=== PATIENT | male | born 1990 | race Caucasian/White ===

== ENCOUNTER 2017-03-31 12:55 | Emergency (ER) | payer OTHER ==
[~2017-03-31] VITALS: Ht 180.3 cm; Wt 73.0 kg
[2017-03-31 12:58] VITALS: TEMP 37.3; Ht 180.3 cm; Wt 73.0 kg
[2017-03-31] MEDS ORDERED: SODIUM CHLORIDE 0.9% 1000ML 1,000 ML IV STA ×2 (13:16→14:19)
[2017-03-31] MEDS ORDERED: KETOROLAC TROMETHAMINE 30 MG/ML VIAL IV STA (13:16)
--- NOTE | 2017-03-31 13:26 | EMERGENCY ROOM VISIT NOTE ---
History Report prepared by Zeinab: Panfilo Arthur Under the Supervision of: Dr. Semaj Jackson D.O. First contact with patient: 13:04 Chief Complaint: NEURO SYMPTOMS Stated Complaint: NUMB FACE/HANDS, HARD TO BREATHE, SORETHROAT, FATI History of Present Illness The patient is a 26 year old male who presents to the Emergency Room with complaints of constant flu like symptoms starting this morning. The patient is complaining of a sore throat, fever, chills, headache, stiff neck, body aches, shortness of breath, chronic rhinorrhea, and a cough. The patient is denying any nausea, vomiting, and abdominal pain. The patient states that he gets strep very often. The patient states that he drank one beer yesterday. He notes that his roommate had a sorethroat last week but it was strep negative. He states that he does not take any medications, and he has not had any surgeries. Source of History: patient Onset: this morning Position: other (global) Quality: other (flu like symptoms) Timing: constant Associated Symptoms: + fevers, + chills, + headache, + sorethroat, + cough, + SOB Review of Systems See HPI for pertinent positives & negatives. A total of 10 systems reviewed and were otherwise negative. Past Medical & Surgical Medical Problems: (1) Sinusitis (2) Sinusitis (3) Strep throat (4) Strep throat Social History Smoking Status: Never Smoker Marital Status: single Housing Status: lives with roommate Occupation Status: employed Current/Historical Medications No Active Prescriptions or Reported Meds Allergies Coded Allergies: No Known Allergies (Unverified , 03/31/17) Physical Exam Vital Signs Date Time Temp Pulse Resp B/P (MAP) Pulse Ox O2 Delivery O2 Flow Rate FiO2 03/31/17 16:01 84 16 129/72 96 03/31/17 15:10 99 03/31/17 15:09 92 20 145/80 100 Room Air 03/31/17 13:36 Room Air 03/31/17 12:58 37.3 128 20 154/85 100 Room Air Physical Exam GENERAL: Patient is awake, alert, anxious appearing, and hyperventilating. EYES: The conjunctivae are clear. The pupils are round and reactive. EARS, NOSE, MOUTH AND THROAT: TMs are clear bilaterally. There is erythema in the posterior oropharynx . No exudate or significant swelling appreciated. The nose is without any evidence of any deformity. Mucous membranes are moist tongue is midline NECK: The neck is nontender and supple. RESPIRATORY: Normal respiratory effort is noted there is no evidence of wheezing rhonchi or rales CARDIOVASCULAR: Tachycardic rate and regular rhythm noted there no murmurs rubs or gallops normal S1 normal S2 GASTROINTESTINAL: The abdomen is soft. Bowel sounds are present in all quadrants. Abdomen is nontender MUSCULOSKELETAL/EXTREMITIES: There is no evidence of gross deformity full range of motion is noted in the hips and shoulders SKIN: There is no obvious evidence of any rash. There are no petechiae, pallor or cyanosis noted. NEUROLOGIC: Patient is awake alert and oriented x3 strength is symmetric patellar reflexes are 2+ bilaterally. Significant bilateral carpopedal spasm noted Medical Decision & Procedures ER Provider Diagnostic Interpretation: Radiology results as stated below per my review and radiologist interpretation: SOFT TISSUE NECK CLINICAL HISTORY: 26 years-old Male presenting with sore throat, fever. TECHNIQUE: Frontal and lateral views of the neck were obtained. COMPARISON: None. FINDINGS: Cervical spine is normal in appearance. No prevertebral soft tissue swelling. No effacement of the valleculae. No swelling of the epiglottis. No apparent thickening of the aryepiglottic folds. Hypopharynx and airway patent. Lung apices clear. IMPRESSION: Normal radiographs of the neck. Electronically signed by: Lencho Natarajan M.D. 03/31/2017 2:46 PM Dictated Date/Time: 03/31/2017 2:44 PM CHEST 2 VIEWS ROUTINE CLINICAL HISTORY: 26 years-old Male presenting with cough. TECHNIQUE: PA and lateral views of the chest were obtained. COMPARISON: None. FINDINGS: Cardiomediastinal silhouette normal. Lungs and pleural spaces clear. Osseous structures normal. Upper abdomen normal. IMPRESSION: 1. No acute cardiopulmonary disease. Electronically signed by: Lencho Natarajan M.D. 03/31/2017 2:44 PM Dictated Date/Time: 03/31/2017 2:43 PM Laboratory Results 03/31/17 13:17 Red Blood Count 4.97, Mean Corpuscular Volume 85.7, Mean Corpuscular Hemoglobin 31.2, Mean Corpuscular Hemoglobin Concent 36.4, Mean Platelet Volume 9.5, Neutrophils (%) (Auto) 67.1, Lymphocytes (%) (Auto) 23.5, Monocytes (%) (Auto) 7.9, Eosinophils (%) (Auto) 0.1, Basophils (%) (Auto) 1.0, Neutrophils # (Auto) 5.60, Lymphocytes # (Auto) 1.96, Monocytes # (Auto) 0.66, Eosinophils # (Auto) 0.01, Basophils # (Auto) 0.08 03/31/17 13:17 Test 03/31/17 13:17 03/31/17 15:05 White Blood Count 8.34 K/uL (4.8-10.8) Red Blood Count 4.97 M/uL (4.7-6.1) Hemoglobin 15.5 g/dL (14.0-18.0) Hematocrit 42.6 % (42-52) Mean Corpuscular Volume 85.7 fL (80-100) Mean Corpuscular Hemoglobin 31.2 pg (25-34) Mean Corpuscular Hemoglobin Concent 36.4 g/dl (32-36) Platelet Count 128 K/uL (130-400) Mean Platelet Volume 9.5 fL (7.4-10.4) Neutrophils (%) (Auto) 67.1 % Lymphocytes (%) (Auto) 23.5 % Monocytes (%) (Auto) 7.9 % Eosinophils (%) (Auto) 0.1 % Basophils (%) (Auto) 1.0 % Neutrophils # (Auto) 5.60 K/uL (1.4-6.5) Lymphocytes # (Auto) 1.96 K/uL (1.2-3.4) Monocytes # (Auto) 0.66 K/uL (0.11-0.59) Eosinophils # (Auto) 0.01 K/uL (0-0.5) Basophils # (Auto) 0.08 K/uL (0-0.2) RDW Standard Deviation 39.0 fL (36.4-46.3) RDW Coefficient of Variation 12.4 % (11.5-14.5) Immature Granulocyte % (Auto) 0.4 % Immature Granulocyte # (Auto) 0.03 K/uL (0.00-0.02) Erythrocyte Sedimentation Rate 7 mm/hr (0-14) Anion Gap 13.0 mmol/L (3-11) Est Creatinine Clear Calc Drug Dose 76.4 ml/min Estimated GFR () 72.9 Estimated GFR (Non- 62.9 BUN/Creatinine Ratio 9.4 (10-20) Calcium Level 9.7 mg/dl (8.5-10.1) Total Bilirubin 1.2 mg/dl (0.2-1) Direct Bilirubin 0.2 mg/dl (0-0.2) Aspartate Amino Transf (AST/SGOT) 23 U/L (15-37) Alanine Aminotransferase (ALT/SGPT) 26 U/L (12-78) Alkaline Phosphatase 100 U/L (45-117) C-Reactive Protein 0.92 mg/dl (0-0.29) Total Protein 8.0 gm/dl (6.4-8.2) Albumin 4.5 gm/dl (3.4-5.0) Monoscreen NEG (NEG) Influenza Type A Antigen Neg for Influ A (NEG) Influenza Type B Antigen Neg for Influ B (NEG) Urine Color YELLOW Urine Appearance CLEAR (CLEAR) Urine pH >= 9.0 (4.5-7.5) Urine Specific [place] 1.007 (1.000-1.030) Urine Protein NEG (NEG) Urine Glucose (UA) NEG (NEG) Urine Ketones 1+ (NEG) Urine Occult Blood NEG (NEG) Urine Nitrite NEG (NEG) Urine Bilirubin NEG (NEG) Urine Urobilinogen NEG (NEG) Urine Leukocyte Esterase NEG (NEG) Laboratory results per my review. Medications Administered Medications (Trade) Dose Ordered Sig/Thomas Route Start Time Stop Time Status Last Admin Dose Admin Ketorolac Tromethamine (Toradol Inj) 30 mg NOW STAT IV 03/31/17 13:16 03/31/17 13:19 DC 03/31/17 13:34 30 MG Sodium Chloride 1,000 ml @ 999 mls/hr Q1H1M STAT IV 03/31/17 13:16 03/31/17 14:16 DC 03/31/17 13:34 999 MLS/HR Sodium Chloride 1,000 ml @ 999 mls/hr Q1H1M STAT IV 03/31/17 14:19 03/31/17 15:19 DC 03/31/17 14:50 999 MLS/HR ED Course 1304: The patient was evaluated in room A11. A complete history and physical examination were performed. 1316: NSS 1,000 ml @ 999 mls/hr IV, Toradol Inj 30mg IV 1419: NSS 1,000 ml @ 999 mls/hr IV 1546: Upon reevaluation, the patient is doing well. I discussed the results and treatment plan with him. He verbalized agreement of the treatment plan. He was discharged home. Medical Decision Differential diagnosis: Etiologies such as viral syndrome, tonsillitis, streptococcal pharyngitis, mononucleosis, peritonsillar abscess, retropharyngeal abscess, otitis, pneumonia , influenza, as well as others were entertained. Nursing notes reviewed. The patient is a 26-year-old male who presented to the emergency department for an evaluation of sore throat. The patient states that he started feeling poorly last evening. The patient has a roommate who also had an upper respiratory infection including a sore throat. The patient's roommate had symptoms that resolved without antibiotics. The patient also had very significant hyperventilation and anxiety upon arrival to the emergency department. He even had carpal pedal spasm. He was found have signs of dehydration with an elevated creatinine. He was treated with IV fluids in the emergency department. He was also given Toradol. I discussed the patient's laboratory radiographic studies with him. He had no focal neurologic deficits. He does not appear to have signs of a bacterial infection at this time. At this time I feel his condition is consistent with an upper respiratory tract infection. He was encouraged to continue using Motrin and Tylenol as directed for pain. He was also encouraged to call [facility] to schedule a follow-up appointment within the next few days. He was also encouraged to drink plenty clear liquids and return to the emergency department immediately if symptoms change worsen or the need arises. Medication Reconcilliation Current Medication List: was personally reviewed by me Blood Pressure Screening Patient's blood pressure: Elevated blood pressure Blood pressure disposition: Elevated BP felt to be situational Impression Primary Impression: Pharyngitis Additional Impressions: Dehydration Hyperventilation Scribe Attestation The scribe's documentation has been prepared under my direction and personally reviewed by me in its entirety. I confirm that the note above accurately reflects all work, treatment, procedures, and medical decision making performed by me. Departure Information Dispostion Home / Self-Care Prescriptions No Active Prescriptions or Reported Meds Referrals No Doctor, Assigned (PCP) Forms HOME CARE DOCUMENTATION FORM, IMPORTANT VISIT INFORMATION, WORK / SCHOOL INSTRUCTIONS Patient Instructions Dehydration, ED URI Viral, My [facility] [place] [facility] Additional Instructions Drink plenty of clear liquids. Continue using Motrin and Tylenol as directed for fever and body aches. Continue all medications as prescribed. Follow-up with [facility] within the next 2 days for reevaluation. Return to the emergency department immediately if symptoms change worsen or need arises. Problem Qualifiers Primary Impression: Pharyngitis Pharyngitis/tonsillitis etiology: unspecified etiology Qualified Codes: J02.9 - Acute pharyngitis, unspecified
[2017-03-31 13:56] LABS: BASO ABS # 0.08 K/uL (0-0.2); COMPLETE YES; EOS % 0.1 %; HEMATOCRIT 42.6 % (42-52); IG% 0.4 %; LYMPH % 23.5 %; LYMPH ABS # 1.96 K/uL (1.2-3.4); MEAN CELL VOLUME 85.7 fL (80-100); MEAN CORPUSCULAR HEMOGLOBIN 31.2 pg (25-34); MEAN CORPUSCULAR HGB CONC 36.4 g/dl (32-36); MEAN PLATELET VOLUME 9.5 fL (7.4-10.4); MONO % 7.9 %; NEUT % 67.1 %; PLATELET COUNT 128 K/uL (130-400); RED BLOOD COUNT 4.97 M/uL (4.7-6.1); WHITE BLOOD COUNT 8.34 K/uL (4.8-10.8)
[2017-03-31 14:17] LABS: BUN/CREATININE RATIO 9.4 (10-20); C-REACTIVE PROTEIN 0.92 mg/dl (0-0.29); CALCIUM 9.7 mg/dl (8.5-10.1); CREATININE 1.5 mg/dl (0.60-1.40); POTASSIUM 3.8 mmol/L (3.5-5.1)
--- NOTE | 2017-03-31 14:45 | DIAGNOSTIC IMAGING REPORT ---
CHEST 2 VIEWS ROUTINE CLINICAL HISTORY: 26 years-old Male presenting with cough. TECHNIQUE: PA and lateral views of the chest were obtained. COMPARISON: None. FINDINGS: Cardiomediastinal silhouette normal. Lungs and pleural spaces clear. Osseous structures normal. Upper abdomen normal. IMPRESSION: 1. No acute cardiopulmonary disease. Electronically signed by: Lencho Natarajan M.D. 03/31/2017 2:44 PM Dictated Date/Time: 03/31/2017 2:43 PM
--- NOTE | 2017-03-31 14:47 | DIAGNOSTIC IMAGING REPORT ---
SOFT TISSUE NECK CLINICAL HISTORY: 26 years-old Male presenting with sore throat, fever. TECHNIQUE: Frontal and lateral views of the neck were obtained. COMPARISON: None. FINDINGS: Cervical spine is normal in appearance. No prevertebral soft tissue swelling. No effacement of the valleculae. No swelling of the epiglottis. No apparent thickening of the aryepiglottic folds. Hypopharynx and airway patent. Lung apices clear. IMPRESSION: Normal radiographs of the neck. Electronically signed by: Lencho Natarajan M.D. 03/31/2017 2:46 PM Dictated Date/Time: 03/31/2017 2:44 PM
[2017-03-31 15:19] LABS: URINE APPEARANCE CLEAR (CLEAR); URINE BILIRUBIN NEG (NEG); URINE COLOR YELLOW; URINE NITRITE NEG (NEG); URINE PH >= 9.0 (4.5-7.5); URINE SPECIFIC GRAVITY 1.007 (1.000-1.030); UROBILINOGEN NEG (NEG)
[2017-03-31 15:28] LABS: MANUAL MICROSCOPIC REQUIRED? NO; REVIEW REQ? NO
[2017-03-31 16:01] VITALS: BP 129/72; PULSE 84; O2SAT 96
== END 2017-03-31 16:04 | disposition home or self-care (01) ==
LOC: C.EDB 12:58 → C.EDA 16:04
DX: J02.9 Acute pharyngitis, unspecified (principal); E86.0 Dehydration; R06.4 Hyperventilation